=== PATIENT | male | born 1950 | race Caucasian/White ===

== ENCOUNTER 2018-11-26 04:13 | Inpatient (IN) ==
--- NOTE | 2018-11-19 17:43 | EKG Report ---
Test Performed on : 11/19/2018 5:31:54 PM Test Reason : PAT Blood Pressure : / mmHG Vent. Rate : 053 BPM Atrial Rate : 053 BPM P-R Int : 264 ms QRS Dur : 088 ms QT Int : 426 ms P-R-T Axes : 009 019 046 degrees QTc Int : 399 ms Sinus bradycardia. with 1st degree AV block. Otherwise normal ECG When compared with ECG of 12-JUL-2018 15:41, No significant change was found Confirmed by Daniela Cary MD ([id number]) on 11/20/2018 1:00:18 PM
[2018-11-19 17:54] LABS: URINE SOURCE CLEAN CATCH
[2018-11-19 17:59] LABS: BASO# 0.04 X1000 (0.0-0.2); BASO% 0.8 % (0.0-0.8); EOS# 0.09 X1000 (0.0-0.7); EOS% 1.7 % (0.0-10.0); HEMATOCRIT 39.7 % (42.0-52.0); HEMOGLOBIN 13.8 g/dL (14.0-18.0); LYMPH# 1.74 X1000 (1.2-3.4); MCH 32.8 PG (27-31); MCHC 34.8 g/dL (33-37); MCV 94.3 FL (81-99); MONO% 13.3 % (1.7-9.3); MPV 10.3 FL (7.4-10.4); NEUT# 2.71 X1000 (1.4-6.5); NEUT% 51.2 % (42.2-75.2); PLT 228 X1000 (130-400); RBC 4.21 XMIL (4.7-6.1); WBC 5.28 X1000 (4.8-10.8)
[2018-11-19 18:00] LABS: BILIRUBIN URINE NEGATIVE (NEGATIVE); BLOOD URINE NEGATIVE (NEGATIVE); COLOR YELLOW; GLUCOSE URINE NEGATIVE (NEGATIVE); KETONE URINE NEGATIVE (NEGATIVE); LEUKOCYTES URINE NEGATIVE (NEGATIVE); NITRITE URINE NEGATIVE (NEGATIVE); PROTEIN URINE NEGATIVE (NEGATIVE); SP GRAVITY URINE 1.014; TURBIDITY URINE CLEAR (CLEAR); UROBILINOGEN URINE NORMAL (NORMAL)
[2018-11-19 18:01] LABS: UR EPITHELIAL CELLS <10 /HPF (<10); URINE BACTERIA NEGATIVE /HPF; URINE RBC <10 /HPF (<10); URINE WBC <10 /HPF (<10)
[2018-11-19 18:09] LABS: INR 0.98; PROTIME 13.1 Seconds (11.0-16.0)
[2018-11-19 18:10] LABS: PTT 28.1 Seconds (22.3-41.8)
[2018-11-19 18:13] LABS: HEMOGLOBIN A1C 5.6 % (4.8-6.0)
[2018-11-19 18:20] LABS: AGAP 12; BUN 14 mg/dL (8-22); CALCIUM 9.8 mg/dL (8.8-10.2); CHLORIDE 102 mmol/L (98-107); COSMO 277; ESTIMATED GFR > 60; GLUCOSE 117 mg/dL (70-104); POTASSIUM 4.5 mmol/L (3.5-5.1); SODIUM 138 mmol/L (136-145); TCO2 24 mmol/L (25-35)
[2018-11-26] MEDS ORDERED: REGLAN ONE (06:45)
[2018-11-26] MEDS ORDERED: COLACE ONE (06:45)
[2018-11-26] MEDS ORDERED: PEPCID ONE (06:45)
[2018-11-26] MEDS ORDERED: LYRICA ONE (06:46)
[2018-11-26] MEDS ORDERED: CELEBREX ONE (06:46)
[2018-11-26] MEDS ORDERED: KEFZOL 1 GM/D5W 2 GM/100 ML IVPB ONE (06:46)
[2018-11-26] MEDS ORDERED: LR 1,000 ML ONE (06:46)
[2018-11-26] MEDS ORDERED: DURAMORPH ONE (07:26)
[2018-11-26] MEDS ORDERED: TORADOL ONE (07:26)
[2018-11-26] MEDS ORDERED: MARCAINE 0.25% PF ONE (07:27)
[2018-11-26] MEDS ORDERED: SODIUM CHLORIDE 0.9% ONE (07:27)
[2018-11-26] MEDS ORDERED: NEOSPORIN G.U. IRRIGANT ONE (07:27)
[2018-11-26] MEDS ORDERED: EXPAREL 1.3% ONE (07:27)
[2018-11-26] MEDS ORDERED: CYKLOKAPRON 1,000 MG/NS 1,000 MG/100 ML IVPB ONE (07:27)
[2018-11-26] MEDS ORDERED: DIPRIVAN 1% ONE ×2 (07:32→07:51)
[2018-11-26] MEDS ORDERED: XYLOCAINE-MPF 2% ONE (07:32)
[2018-11-26] MEDS ORDERED: QUELICIN (DOSE) ONE (07:32)
[2018-11-26] MEDS ORDERED: FENTANYL ONE ×2 (07:54→08:15)
[2018-11-26] MEDS ORDERED: ZEMURON ONE (08:04)
[2018-11-26] MEDS ORDERED: ROBINUL ONE ×2 (08:10→08:19)
[2018-11-26] MEDS ORDERED: EPHEDRINE ONE (08:34)
[2018-11-26] MEDS ORDERED: ZOFRAN ONE (08:45)
[2018-11-26] MEDS ORDERED: DECADRON ONE (08:45)
[2018-11-26] MEDS ORDERED: NEO-SYNEPHRINE ONE (08:48)
[2018-11-26] MEDS ORDERED: OFIRMEV 1000 MG/ISOTONIC SOLN 1,000 MG/100 ML BOTTLE ONE (09:19)
[2018-11-26] MEDS ORDERED: NS 1,000 ML ONE (09:44)
--- NOTE | 2018-11-26 10:15 | Diag Imaging Result Doc PS360 ---
SHOULDER 1 VIEW LEFT - 11/26/2018 INDICATION: lt total shoulder TECHNIQUE: COMPARISON: None FINDINGS: There has been left total shoulder arthroplasty. Alignment is anatomic. No hardware fracture or loosening. IMPRESSION: No complication. Electronically signed by Flash Jones 11/26/2018 10:13 AM
[2018-11-26] MEDS ORDERED: OXY IR ONE (10:28)
--- NOTE | 2018-11-26 10:28 | OPERATIVE NOTE ---
PROCEDURE DATE: 11/26/2018 PREOPERATIVE DIAGNOSIS: Left degenerative glenohumeral arthritis. POSTOPERATIVE DIAGNOSIS: Left degenerative glenohumeral arthritis. PROCEDURE: Left reverse total shoulder arthroplasty with DePuy Delta Extend size 14 press-fit stem. A 42 mm Eccentric +2 mm lateralized glenosphere. A 42+ 3 humeral cup and a standard Metaglene. SURGEON: Dr. Crawley DIPLOMATIC OFFICER: AMBREEN Mckeon who was necessary for proper retraction and mobilization of extremity, and increased efficiency for the case. SECOND MANAGER TELECOM: Demario Larose RN. ANESTHESIA: General. IV FLUIDS: 1500 mL lactated Ringer's. ESTIMATED BLOOD LOSS: 150 mL. COMPLICATIONS: None. INDICATIONS: The patient is pleasant a 68-year-old male with chronic history of worsening pain and discomfort of the left shoulder. Continued pain and discomfort despite appropriate nonoperative treatment. X-rays revealed significant degenerative arthritis. Recommendation to proceed with left reverse total shoulder arthroplasty was offered. Risks and benefits of surgery were explained, including the risks of anesthesia, , bleeding, infection, failure to relieve pain, postoperative stiffness, nerve injury, blood clots, and other imponderables. All questions answered. The patient and family wishes to proceed with surgery. DETAILS OF OPERATION: The patient was taken to the operating room and placed supine on the operating table. Once adequate anesthesia was obtained, patient was placed in a semi-Bauer beach- chair position. The left shoulder was subsequently prepped and draped in usual sterile fashion. A standard deltopectoral incision was made with a skin knife. Hemostasis was obtained using electrocautery. The deltopectoral interval was then developed. Retractors were then placed. Attention was then turned to the subscapularis tendon approximately 1 cm medial to its insertion and was released. A stay suture was placed in the medial aspect of the tendon. The head was then dislocated anteriorly. It had significant arthritic changes. Further release of the superior aspect of the rotator cuff was then performed. Intramedullary guide was then placed into the canal, and was reamed up to a size 12 mm. Intramedullary guide was then place in position. The proximal humeral cutting block guide was placed, and the humeral head cutting block was then pinned in approximately 15 intramedullary guide was placed and the humeral head cutting block was then this was pinned in approximately 15 degrees of retroversion. The humeral head was then resected. The inferior osteophyte was removed with a rongeur. A protective disk was then placed. Circumferential dissection was performed with a deep knife along the glenoid. The guide was then placed in position, and guide pin was placed. Reaming was then conducted. The central hole was then dilated. A standard Metaglene was then impacted in position. Two locking screws were placed and 2 nonlocking screws appeared to have good purchase. The patient did have a small inferior osteophyte off the glenoid which was removed with a small osteotome. The wound was copiously irrigated. A 42 eccentric +2 mm lateralized glenosphere was then placed, and with eccentricity placed inferiorly. It had good purchase. After this had been performed, attention was turned to the proximal humerus. Intramedullary guide was placed in position. Proximal humerus was reamed. The patient did have some loosening of the skin there with a size 12 with a guide. Therefore, it was reamed up to size 14. The intramedullary canal was copiously irrigated with antibiotic pulsatile lavage. A size 14 delta Extend press-fit stem was impacted in position and had good fit. Trial cup size performed 42 + 3 cup had excellent stability and range of motion. Trial cup was removed. Copious irrigation once again performed with antibiotic pulsatile lavage. A 42+ 3 humeral cup was then placed. The shoulder was reduced, carried through range of motion. It had excellent stability and range of motion. The wound was copiously irrigated. Exparel was placed in deep soft tissue as well as subcutaneous tissue. A #2 FiberWire was used to repair the subscapularis tendon, and had good repair. The wound was copiously irrigated once again. A 2-0 Vicryl was then used to repair the subcutaneous tissue followed by a running 2-0 Prolene. Benzoin and Steri-Strips applied. Adaptic, sterile 4 x 4, ABD pad, and tape applied to the left shoulder followed by shoulder immobilizer. All counts were correct. Patient tolerated the procedure well, and was transferred to recovery room in stable condition. cc: Cliff Crawley MD MTDD
[2018-11-26] MEDS ORDERED: ZOFRAN PO PRN (10:30)
[2018-11-26] MEDS ORDERED: OXY IR PO PRN (10:30)
[2018-11-26] MEDS ORDERED: MILK OF MAGNESIA PO PRN (10:30)
[2018-11-26] MEDS ORDERED: MORPHINE IV PRN ×2 (10:30)
[2018-11-26] MEDS: OXY IR PO PRN ×2 (13:57→23:47)
[2018-11-26] MEDS ORDERED: CYKLOKAPRON 1,000 MG in NS 100 ML IV ONE (14:00)
[2018-11-26] MEDS: KEFZOL 2 GM/D5W 2 GM/50 ML IVPB IV SCH ×2 (17:43→23:49)
[2018-11-26] MEDS: NS 1,000 ML IV SCH (17:44)
[2018-11-26] MEDS: MORPHINE IV PRN ×3 (18:13→21:17)
[2018-11-26 19:34] LABS: BILIRUBIN URINE NEGATIVE (NEGATIVE); BLOOD URINE TRACE (NEGATIVE); COLOR YELLOW; GLUCOSE URINE NEGATIVE (NEGATIVE); KETONE URINE NEGATIVE (NEGATIVE); LEUKOCYTES URINE NEGATIVE (NEGATIVE); NITRITE URINE NEGATIVE (NEGATIVE); PH URINE 6.5; PROTEIN URINE NEGATIVE (NEGATIVE); SP GRAVITY URINE 1.022; TURBIDITY URINE CLEAR (CLEAR); URINE SOURCE CATH; UROBILINOGEN URINE NORMAL (NORMAL)
[2018-11-26 19:35] LABS: UR EPITHELIAL CELLS <10 /HPF (<10); URINE BACTERIA NEGATIVE /HPF; URINE WBC <10 /HPF (<10)
[2018-11-26] MEDS ORDERED: CRESTOR PO SCH (21:00)
[2018-11-26] MEDS: PERIDEX MT SCH (21:14)
[2018-11-26] MEDS: LOPRESSOR PO SCH (21:16)
[2018-11-26] MEDS: FLOMAX PO SCH (21:16)
[2018-11-26] MEDS: COLACE PO SCH (21:16)
--- NOTE | 2018-11-26 21:53 | CONSULTATION ---
DATE OF CONSULTATION: 11/26/2018 CHIEF COMPLAINT: Urinary retention. HISTORY OF PRESENT ILLNESS: Mr. Morales is a 68-year-old with coronary artery disease, hypercholesterolemia, hypertension, osteoarthritis, obstructive sleep apnea, history of prostate cancer status post external radiation and brachytherapy placement and history of urethral stricture, who presents in consultation regarding difficult catheter placement. The patient had undergone a left shoulder replacement today by Dr. Crawley. The patient had attempted placement of catheter while in the operating room by nursing, and it was unable to place. Decision was made to see if he could urinate after the procedure. The patient has been unable to void and had a PVR greater than 800 mL per nursing staff. The patient is feeling uncomfortable and has attempted multiple times to urinate since surgery. The patient has a long history of urethral stricture disease and has been seen by Dr. De Dios for this. The patient describes an episode several years ago when he was on vacation in [place]. He was unable to void and had a catheter inserted. The patient has had 2 prior cystoscopies with urethral dilation, most recently approximately 1 year ago. The patient was seen by his urologist yesterday, and states that his urinary stream has been relatively stable but is weaker than it has been previously. He felt like he was emptying his bladder and had a low postvoid residual yesterday of only 25 mL. The patient is describing pain and discomfort. He denies any history of hematuria or dysuria. PAST MEDICAL HISTORY: 1. Hypertension. 2. Prostate cancer, status post brachytherapy and external radiation. 3. Coronary artery disease. 4. Hypercholesterolemia. 5. Osteoarthritis. 6. Obstructive sleep apnea. 7. Urethral stricture PAST SURGICAL HISTORY: 1. Ankle fusion. 2. Knee arthroscopy. 3. Left hip replacement. 4. Left knee arthroscopy. 5. Brachytherapy. ALLERGIES: Denies any allergies. MEDICATIONS: 1. Amlodipine 10 mg. 2. Cialis 5 mg. 3. Crestor 40 mg. 4. Losartan 100 mg. 5. Meloxicam 15 mg. 6. Metoprolol tartrate 100 mg b.i.d. 7. Rosuvastatin 40 mg. 8. Spironolactone 25 mg. 9. Zetia 10 mg tablets. 10. Aspirin 81 mg. 11. CoQ10, 100 mg daily. FAMILY HISTORY: Denies family history of malignancy. SOCIAL HISTORY: Denies tobacco or illicit drug use. Alcohol: The patient drinks 2 drinks a night. REVIEW OF SYSTEMS: A 12-point review of systems was performed, with all pertinent positives and negatives in HPI. PHYSICAL EXAMINATION: Vital signs: Temperature 97.7 degrees, heart rate 64, blood pressure 117/64, oxygen saturation 95% on room air.General: No acute distress. Resting comfortably in bed. Alert and oriented x3. HEENT: Normocephalic, atraumatic. Pupils equal, round and reactive to light. Respiratory: Good respiratory effort without audible wheezing or rales. Cardiovascular: S1, S2 heart sounds. Regular rate and rhythm. GI: Abdomen is soft. Slight tenderness over the suprapubic region. No palpable masses. : Denies any CVA tenderness. The patient has normal phallus with orthotopic meatus and bilateral testicles palpated, without any without masses or nodularity. No tenderness on palpation of epididymis. Musculoskeletal: Moving all extremities. Left upper extremity in a sling with dressing present over the shoulder. Neurologic: Gross motor and sensory intact. Skin: No obvious skin lesions or rashes. ASSESSMENT AND PLAN: Mr. Morales is a 68-year-old with history of hypertension, hypercholesterolemia, coronary artery disease, osteoarthritis, history of prostate cancer, status post external beam radiation and brachytherapy and urethral stricture. Presents in consultation regarding urinary retention and difficult catheter placement. In talking with the patient, the patient was seen by his urologist yesterday and had a low postvoid residual around 25 mL. The patient was having weakened urinary stream over the past several months, but was able to empty his bladder to completion. He denies any straining to void or pain with urination. The patient describes having suprapubic tenderness today after his shoulder procedure. In talking with the patient, nursing attempted to place a catheter in the operating room, but were unable to do so and the patient was left without a catheter. The patient has not voided since then. I attempted to place a 14-H[place]er silicone catheter under sterile conditions; however, I was unable to place the catheter due to resistance within the urethra. This appeared to be near the bulbar urethra. I was able to obtain a ZIPwire and this passed easily into the bladder. I attempted to pass the silicone catheter over the wire into the bladder; however, it would not go. In talking with the patient, I recommended urethral dilation. I discussed the procedure with the patient and obtained his consent. He desired to proceed. The patient received 4 mg of morphine and using sterile technique and the Bard dilator kit, starting at 12 [place] and increasing up to 18 [place], the dilators passed easily with return of clear yellow urine each time. Resistance was seen near the bulbar urethra. Once these were placed the wire was left in place, and using an 18- [place] catheter I passed this through the silicone catheter and used this to assist the passage of the 14-[place] silicone catheter over the wire and into the bladder. This passed easily, with return of clear yellow urine. It was inflated with 10 mL of sterile water and placed to gravity drainage. Approximately 600 mL of urine were obtained. No evidence of any clots. A StatLock was placed to the lower extremity. RECOMMENDATIONS: In talking with the patient, the patient seems to have undergone several dilations of the urethra in the past by Dr. De Dios. I think the patient will continue to have urethral stricture disease recurrence because of prior radiation. The patient has a history of prostate cancer that was treated with external beam radiation and brachytherapy. The patient has a 14-H[place] catheter in place. I would recommend keeping it in for at least 1 week. This was discussed with the patient. The patient will return to the office next week for catheter removal and voiding trial. If the patient develops worsening symptoms of urinary straining or inability to void, we will have to consider cystoscopy and urethral dilation. The patient is hesitant to undergo any direct-vision internal urethrotomy, as he is concerned this will lead to urinary incontinence. We will continue to monitor from a urologic standpoint. Please call with questions or concerns. cc: MD Cliff López MD [facility]
[2018-11-27] MEDS: OXY IR PO PRN ×2 (04:21→08:46)
[2018-11-27 06:04] LABS: HEMATOCRIT 36.1 % (42.0-52.0); HEMOGLOBIN 12.5 g/dL (14.0-18.0)
[2018-11-27 06:21] LABS: AGAP 13; BUN 12 mg/dL (8-22); CHLORIDE 104 mmol/L (98-107); COSMO 275; CREATININE 0.7 mg/dL (0.7-1.2); ESTIMATED GFR > 60; GLUCOSE 126 mg/dL (70-104); POTASSIUM 4.4 mmol/L (3.5-5.1); SODIUM 137 mmol/L (136-145); TCO2 20 mmol/L (25-35)
--- NOTE | 2018-11-27 06:27 | ORTHOPAEDICS PROGRESS NOTE ---
DATE: 11/27/2018 SUBJECTIVE: The patient is a 68-year-old male who is 1 day status post left reverse total shoulder arthroplasty. Patient is currently resting comfortably. The patient was unable to void yesterday afternoon and had urinary retention, Dr. Chávez was consulted and placed a catheter, and underwent urethral dilation after the placement of the catheter. He is comfortable this morning. PHYSICAL EXAMINATION: Left upper extremity, his wound looks good. There is no signs or symptoms of infection. He is neurovascularly intact distally. 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 LABS: His labs are pending. IMPRESSION: Postoperative day #1 status post left reverse total shoulder arthroplasty. PLAN: At this point, we will plan on discharging home. Patient will be discharged home with the catheter and will follow with Dr. Chávez in 1 week for catheter removal and voiding trial. Patient will arrange for home physical therapy with regards to her left shoulder. The patient will follow up in the office on 12/11/2018. cc: Cliff Crawley MD
[2018-11-27] MEDS: NS 1,000 ML IV SCH (07:14)
--- NOTE | 2018-11-27 08:29 | PROGRESS NOTE ---
DATE: 11/27/2018 SUBJECTIVE: The patient had difficult catheter placement yesterday and required urethral dilation at bedside and placement of 14-[place] silicone catheter. The patient tolerated this well. He did have a small amount of discomfort on placing, but denies any pain now. His catheter drained well overnight with clear yellow urine. No evidence of clots or dysuria. The patient has long history of urethral stricture disease. The patient's catheter has put out over 2.3 L since placement. PHYSICAL EXAMINATION: Vital Signs: Temperature 97.8 degrees, heart rate 54, blood pressure 123/63, oxygen saturation 98% on room air. General: No acute distress. Resting comfortably in bed. Alert and oriented x3. Abdomen: Soft, nontender, nondistended. : No suprapubic tenderness. No CVA tenderness. Urethral catheter in place draining clear yellow urine. Musculoskeletal: Patient has dressing over left shoulder. LABS: Hemoglobin 12.5, hematocrit 36.1. Sodium 137, potassium 4.4, chloride 104, bicarbonate 20. BUN 12, creatinine 0.7, glucose 126. ASSESSMENT AND PLAN: Mr. Morales is a 68-year-old with history of prostate cancer status post external radiation and brachytherapy, who has a long history of urethral stricture disease. The patient had attempted catheter placement in the operating room yesterday, which was not successful per nursing. Urology was consulted once on the floor. The patient could not pee after surgery. I evaluated the patient and ultimately had to perform difficult catheter placement. The patient does have a tight urethral stricture, which appears to be bulbar in origin versus maybe prostatic urethra. I was able to place a wire through this and into the bladder and ultimately performed urethral dilations with a Bard kit. The patient has a 14-[place] catheter in place draining clear yellow urine. Recommend continued indwelling catheter in for approximately 1 week. We will plan to remove it in the office and have followup. The patient likely will have recurrence of his stricture over time. This is discussed at length with the patient. The patient has had several surgeries in the past by Dr. De Dios regarding this. We will continue to monitor from a urologic standpoint. Please call with questions or concerns. cc: MD Cliff López MD MTDD
[2018-11-27] MEDS: FLOMAX PO SCH (08:47)
[2018-11-27] MEDS: LOPRESSOR PO SCH (08:47)
[2018-11-27] MEDS: COLACE PO SCH (08:47)
[2018-11-27] MEDS: PERIDEX MT SCH (08:47)
[2018-11-27] MEDS ORDERED: COZAAR PO SCH (09:00)
[2018-11-27] MEDS ORDERED: MOBIC PO SCH (09:00)
[2018-11-27] MEDS ORDERED: ASPIRIN EC PO SCH (09:00)
[2018-11-27] MEDS ORDERED: NORVASC PO SCH (09:00)
[2018-11-27] MEDS ORDERED: ALDACTONE PO SCH (09:00)
[2018-11-27] MEDS ORDERED: ZETIA PO SCH (09:00)
[2018-11-27 11:28] VITALS: BP 121/61
== END 2018-11-27 12:25 | disposition home health service (06) | DRG 483 ==
LOC: SURHOLD 04:13 → 4N 08:48
PROVIDERS: ADMIT Orthopaedic Surgery Adult Reconstructive Orthopaedic Surgery; ATTEND Orthopaedic Surgery Adult Reconstructive Orthopaedic Surgery